=== PATIENT | female | born 1945 | race Caucasian/White ===

== ENCOUNTER 2020-11-01 14:35 | Emergency (ER) | payer MEDICARE, OTHER, SELFPAY ==
[2020-11-01 14:47] VITALS: BP 161/85; PULSE 101; RESP 18; TEMP 36.5; O2SAT 98; BMI 23.4
--- NOTE | 2020-11-01 16:37 | ECG_ITS ---
Test Reason : MEDICAL Blood Pressure : / mmHG Vent. Rate : 098 BPM Atrial Rate : 098 BPM P-R Int : 184 ms QRS Dur : 118 ms QT Int : 348 ms P-R-T Axes : 044 -22 016 degrees QTc Int : 444 ms Normal sinus rhythm Right bundle branch block Abnormal ECG No previous ECGs available Referred By: Tamara Leos Electronically Signed By:KELSI ROBLES
--- NOTE | 2020-11-01 16:38 | ED_ITS ---
HPI - General Adult General Chief complaint: General Medical Stated complaint: multiple complaints Time Seen by Provider: 11/01/20 16:20 Source: patient Mode of arrival: ambulatory Limitations: no limitations History of Present Illness HPI narrative: Patient comes to the emergency room asking for medication reassurance. Patient states that she was recently diagnosed with H pylori, today in the pharmacy she picked up a prescription of amoxicillin and omeprazole and Zofran for nausea. Patient states that she is very anxious and does not know if it is okay for her to take this medication. Patient states that she has had burning sensation in the epigastric area for several weeks, she has a GI appointment coming up in November. Patient states the discomfort is not too bad at this moment, 1st that she does not want any labs for today, she just wants reassurance about her new medications. Patient denies chest pain, no shortness of breath, no vomiting or diarrhea Related Data Allergies Allergy/AdvReac Type Severity Reaction Status Date / Time prednisone AdvReac Insomnia Verified 11/01/20 14:46 Review of Systems Review of Systems: Constitutional : No Weight loss, No Fever, No Chills, No Night Sweats, No Fatigue, No Malaise ENT/Mouth : No Hearing loss, No Ear Pain, No Nasal Congestion, No Sinus Pain, No Hoarseness, No sore throat, No Rhinorrhea, No Swallowing Difficulty Eyes: No Eye Pain, No Swelling, No Redness, No Foreign Body, No Discharge, No V ision Changes Cardiovascular : No Chest Pain, No SOB, No Dyspnea on Exertion, No Orthopnea, No Edema, No Palpitations Respiratory : No Cough, No Sputum, No Wheezing, No Smoke Exposure, No Dyspnea Gastrointestinal : Complaining of occasional nausea, no vomiting or diarrhea, burning sensation in her esophagus, mild epigastric burning sensation, no other abdominal pain, No Hematochezia, No Melena Genitourinary : no irregular bleeding, No Dysuria, No Urinary Frequency, No Hematuria, No Urinary Incontinence, No Urgency, No Flank Pain, No Urinary Flow Changes, No Hesitancy Musculoskeletal : No joint pain, No Myalgias, No Joint Swelling Skin : No Skin Lesions, No rash Neuro : No Weakness, No Numbness, No Paresthesias, No Loss of Consciousness, No Dizziness, No Headache Psych : No Anxiety/Panic, No Depression, No SI/HI/AH/VH, No Social Issues, Heme/Lymph: No Bruising, No Bleeding,No Lymphadenopathy Endocrine : No Polyuria, No Polydipsia, No Temperature Intolerance [facility] Past Medical History Medical History Dystonia Gastric reflux H. pylori infection HTN (hypertension) Overactive bladder Sinusitis Surgical History Hx of breast surgery Social History Social History Advance Directives: No Advance Directives Information Provided: No Physical Exam Vital Signs: Vital Signs: Last Vital Signs Temp 98.3 F 11/01/20 17:08 Pulse 96 11/01/20 17:08 Resp 17 11/01/20 17:08 BP 157/78 H 11/01/20 17:08 Pulse Ox 99 11/01/20 17:08 Body Mass Index 23.4 Appearance: Alert. Oriented X3. No acute distress. Very anxious Eyes: Pupils equal, round and reactive to light. ENT: Pharynx normal. Neck: Normal inspection. Neck supple. No lymph nodes noted. No crepitus CVS: Normal heart rate and rhythm. Pulses normal. Normal S1 and S2 Respiratory: No respiratory distress. Breath sounds normal. No Wheezing. No rales Abdomen: Soft and nontender even in the epigastric area. No rigidity. No distention. good BS x4 Skin: Skin warm and dry. Normal skin color. Normal skin turgor. Extremities: No lower extremity edema. No lower extremity edema. No Lacerations. No Rash Neuro: Oriented X 3. No motor deficit. No sensory deficit. Moving all extermities. No slurred speech. Course Course Course Narrative: Patient refused any labs, agree to take a GI cocktail and agree to an EKG. 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 Patient was reassured, agrees to take her medications as prescribed. Medical Decision Making ECG Data Attestation: I personally reviewed and interpreted this ECG as follows: (Sinus rhythm, heart rate 98, incomplete right bundle-branch block, QTC 444, nonspecific T-wave inversions in lead III) Discharge Plan Discharge Clinical Impression: Chronic GERD, Anxiety Patient Disposition: Home, Self-Care Instructions: Helicobacter Pylori (ED) Additional Instructions: Please follow-up with your primary care physician tomorrow. If you have any w orsening or new symptoms, please return to the emergency room or call [phone]
[2020-11-01] MEDS: Lidocaine HCl Viscous 2 % 15 ML SOLUTION MUCOUS MEM (17:02)
[2020-11-01] MEDS: Magnesium Hydrox/Alum Hydrox 30 ML ORAL.SUSP PO (17:02)
[2020-11-01 17:08] VITALS: BP 157/78; PULSE 96; RESP 17; TEMP 36.8; O2SAT 99
== END 2020-11-01 17:41 | disposition home or self-care (01) ==
PROVIDERS: Emergency Provider Emergency Medicine; PCP Internal Medicine
DX: F41.9 Anxiety disorder, unspecified (principal); K21.9 Gastro-esophageal reflux disease without esophagitis; A04.8 Other specified bacterial intestinal infections; I10 Essential (primary) hypertension
CPT/HCPCS: 93005; 99283

== ENCOUNTER 2022-01-07 18:33 | Emergency (ER) | payer MEDICARE, OTHER, SELFPAY ==
[2022-01-07 18:40] VITALS: BP 139/85; PULSE 91; RESP 17; TEMP 36.7; O2SAT 96; BMI 21.1
--- NOTE | 2022-01-07 20:24 | ED.SKABFB ---
HPI - Skin/Abscess/Foreign Bdy General Chief complaint: Skin/Abscess/Foreign Body Stated complaint: tick bite Time Seen by Provider: 01/07/22 19:33 Source: patient Mode of arrival: ambulatory Limitations: no limitations History of Present Illness HPI narrative: 76-year-old female whose pulled a deer tick of her left lower abdomen today, she felt the tick 1 week ago but thought it was a mole on her skin No fevers, no rash, no myalgias, no joint pain, no redness or swelling in her joints. Related Data Previous Rx's Medication Instructions Recorded doxycycline hyclate 100 mg tablet 100 mg PO BID 14 Days #28 tab 01/07/22 Allergies Allergy/AdvReac Type Severity Reaction Status Date / Time prednisone AdvReac Insomnia Verified 01/07/22 18:39 Review of Systems Constitutional: Constitutional: Denies body ache(s), Denies chills, Denies fatigue, Denies fever(s), Denies headache(s), Denies malaise and Denies weakness Eyes: Eyes: Denies diplopia ENT: Denies vertigo, Denies dizziness, Denies otalgia, Denies headache(s), Denies mouth pain, Denies post nasal drip, Denies sinus pain, Denies sinus pressure, Denies sore throat and Denies throat swelling Cardiovascular: Cardiovascular: Denies chest pain, Denies syncope, Denies leg edema, Denies lightheadedness, Denies Loss of Consciousness, Denies palpitations and Denies dyspnea Respiratory: Respiratory: Denies chest congestion, Denies cough and Denies dyspnea Gastrointestinal: Gastrointestinal: Denies abdominal pain, Denies hematochezia, Denies constipation, Denies diarrhea and Denies vomiting Musculoskeletal: Musculoskeletal: Reports no additional musculoskeletal complaints Integumentary/Breasts: Comments: Tick bite to left lower abdomen Neurologic: Denies confusion, Denies vertigo, Denies dizziness, Denies syncope, Denies headache(s) and Denies weakness Psychiatric: Psychiatric: Denies anxiety, Denies confusion and Denies depression Endocrine: Endocrine: Denies fatigue and Denies palpitations Allergic/Immunologic: Allergic/Immunologic: Denies throat swelling PMFSH Past Medical History Medical History Dystonia Gastric reflux H. pylori infection HTN (hypertension) Overactive bladder Sinusitis Surgical History Hx of breast surgery Social History Social History Advance Directives: No Advance Directives Information Provided: No Physical Exam Vital Signs: Vital Signs: Last Vital Signs Temp 98.1 F 01/07/22 18:40 Pulse 91 01/07/22 18:40 Resp 17 01/07/22 18:40 BP 139/85 01/07/22 18:40 Pulse Ox 96 01/07/22 18:40 BMI result Body Mass Index 21.1 Const: General: No confusion Nutritional Appearance: well nourished Orientation/consciousness: No confusion Limitations: no limitations Eyes: Conjunctivae: conjunctivae normal Pupils: Equal, round and reactive pupils present EOM: EOMs intact bilaterally Neck: Neck: Yes full ROM, Yes no lymphadenopathy and Yes supple Resp: Effort & Inspection: normal respiratory effort and able to speak in complete sentences Auscultation: clear to auscultation bilaterally, no crackles, no rales, no rhonchi and no wheezes Cardio: Rate: regular rate Rhythm: regular rhythm Heart sounds: S1 normal heart sound present and S2 normal heart sound present Skin: Other: 2 cm mildly erythematous and inflamed area with tiny necrotic center on patient's lower left abdomen Neuro: General: No confusion Cranial nerves: Yes Equal, round and reactive pupils present Extrem: General: Yes normal to inspection and Yes full ROM Psych: Appearance: grossly normal Affect: normal affect Attitude: cooperative Thought process: Normal thought process present Course Course Course Narrative: 76-year-old female presents with tick bite on left lower abdomen that may have been in place for 1 week. On exam, patient has 2 cm mildly swollen erythematous circular region with necrotic center, she brought in tick which is a deer tick Will treat with doxycycline Gave return precautions of fever, rash, joint pain, myalgias, joint redness or swelling. Counseled patient to follow-up with her primary care provider Discharge Plan Discharge Clinical Impression: Tick bite of abdominal wall Patient Disposition: Home, Self-Care Instructions: Lyme Disease (ED), Tick Bite (ED) Additional Instructions: Please take antibiotics as prescribed. Please call your primary care provider for follow-up appointment from today's emergency room Visit. Please cover up and stay out of the sun, the antibiotic you are on can make you very sensitive To sunburn. If you have fevers, rash, pain in your joints, redness or swelling in your joints, please return to be seen. Prescriptions: New doxycycline hyclate 100 mg tablet 100 mg PO BID 14 Days Qty: 28 0RF Interventions: ED Discharge Assessment Last Done: 01/07/22 19:53 Discharge Date/Time: 01/07/22 19:54
== END 2022-01-07 19:54 | disposition home or self-care (01) ==
PROVIDERS: Emergency Provider Emergency Medicine Emergency Medical Services; PCP Internal Medicine
DX: S30.861A Insect bite (nonvenomous) of abdominal wall, initial encounter (principal); R10.9 Unspecified abdominal pain; W57.XXXA Bitten or stung by nonvenomous insect and other nonvenomous arthropods, initial encounter; Y93.9 Activity, unspecified; Y92.9 Unspecified place or not applicable; Y99.9 Unspecified external cause status
CPT/HCPCS: 99283

== ENCOUNTER 2025-05-02 08:11 | Outpatient (REF) | payer MEDICARE, OTHER, SELFPAY ==
--- OUTSIDE RECORDS SUMMARY | 2025-04-29 09:30 | XMS_ITS | Encounter Summary ---
Author Organization [facility] Address [address] [place] [address] Care Team Providers Care Monitoring Specialist Name Role Phone Acacia Arora MD Primary Care Provider [phone] Reason for Visit * Reason Comments Vaginitis/Bacterial Vaginosis Encounter Details Date Type Department Care Team (Late st Contact Info) Description 04/29/2025 9:30 AM EDT Office Visit Obstetrics and Gynecology - [address] [phone] Sera Neves, [facility] [address] [place] [address] Lichen planus (Primary Dx); Vaginal atrophy Social History Tobacco Use Types Packs/Day Years Used Date Smoking Tobacco: Former Cigarettes Q uit: 09/04/1966 Smokeless Tobacco: Never Alcohol Use Standard Drinks/Week Comments Yes 0 (1 standard drink = 0.6 oz pur e alcohol) Housing Instability Answer Date Recorde d Are you worried that in the next 2 months you may not have stable housing? No 04/23/2025 Food Access & Nutrition Answer Date Rec orded Do you have access to a vari ety of food including fruits and vegetables? Yes 04/23/2025 Access to Healthcare Answer Date Record ed Within the last 3 months, renate mancilla many times did you visit the emergency department for your medical care? 0 04/23/2025 Health Literacy Answer Date Recorded How often do you need to hav e someone help you when you read instructions, pamphlets, or other written material from your doctor or pharmacy? Never 04/23/2025 Caregiver: How often do you need to have someone help you when you read instructions, pamphlets, or other written material from your doctor or pharmacy? Not on file 04/23/2025 Financial Risk Answer Date Recorded How hard is it for you to pa y for the very basics like food, housing, medical care, and air conditioning / heating? Not very hard 04/23/2025 Transportation Answer Date Recorded Has the lack of transportati on kept you from meetings, work, or from getting things needed for daily living? No Has the lack of transportati on kept you from medical appointments or from getting medications? No 04/23/2025 Social Isolation Answer Date Recorded How often do you feel lonely or isolated from th ose around you? Never 04/23/2025 Food Risk Answer Date Recorded Within the past 12 months we worried whether our food would run out before we got money to buy more. Never true 04/23/2025 Within the past 12 months th e food we bought just didn't last and we didn't have money to get more. Never true 04/23/2025 Dependent Care Answer Date Recorded Do you need help finding or paying for care for your loved ones. For example, child abuse worker or elderly care for an older adult? No 04/23/2025 Education Answer Date Recorded Do you think completing more education or training, like finishing a GED, going to college, or learning a trade, would be helpful for you? N/A 04/23/2025 Employment and Income Answer Date Recor ded During the last four weeks, have you been actively looking for work? No 04/23/2025 Living Situation Answer Date Recorded What is your living situation? 0 04/23/2025 Comments No Sex and Gender Information Value Date Recorded Sex Assigned at Not on file Legal Sex Female 9:30 PM EST Gender Identity Not on file Sexual Orientation Not on file documented as of this encounter Last Filed Vital Signs Vital Sign Reading Time Taken Comments Blood Pressure 115/61 04/29/2025 9:35 AM EDT Pulse 69 04/29/2025 9:35 AM EDT Temperature - - Respiratory Rate 14 04/29/2025 9:35 AM EDT Oxygen Saturation - - Inhaled Oxygen Concentration - - Weight 57.8 kg (127 lb 6.4 oz) 04/29/2025 9:35 A M EDT Height - - Body Mass Index 24.68 04/23/2025 10:36 AM EDT documented in this encounter Progress Notes * Sera Neves CNM - 04/29/2025 9:30 AM EDT CHIEF COMPLAINT: Vaginitis/Bacterial Vaginosis IDENTIFIER:Bev Ramirez is a 79 y.o. female. HPI: Bev presents to office for lichen planus and vaginal atrophy follow up. She is using the estrace cream 3 x a week and mycolog- nystatin triamcinolone 4x a week. Feels good no chronic itching. She is not sexually active. Denies PMB. Uses coconut oil 2 x a day for barrier. No urinary symptoms sees a urologist. ROS: As stated in HPI PAST MEDICAL HISTORY: OB History Para Term AB Living 3 3 3 3 SAB IAB Ectopic Multiple Live Births 3 # Outcome Date GA Lbr Tito/2nd Weight Sex Type Anes PTL Lv 3 Term ADELINE 2 Term ADELINE 1 Term ADELINE Patient Active Problem List Diagnosis Essential hypertension Hypothyroidism Intestinal metaplasia of gastric mucosa Lichen planus Osteoporosis, postmenopausal Recurrent UTI SSBE (short-segment Arnett's esophagus) Tremor Cervical dystonia Bladder neoplasm of uncertain malignant potential Past Surgical History: Procedure Laterality Date BREAST BIOPSY : ? rt side BREAST LUMPECTOMY COLONOSCOPY 10/23/2007 wnl COLONOSCOPY 01/06/2021 Diverticulosis, otherwise normal, repeat in 10 years. ESOPHAGOGASTRODUODENOSCOPY 01/06/2021 SSBE, esophageal and gastric biopsies: Intestinal metaplasia in 1 biopsy, Arnett's esophagus present: No Helicobacter pylori infection. TUBAL LIGATION SOCIAL HISTORY: Social History Tobacco Use Smoking status: Former Current packs/day: 0.00 Types: Cigarettes Quit date: 09/04/1966 Years since quittin.6 Smokeless tobacco: Never Substance Use Topics Alcohol use: Yes FAMILY HISTORY: Family History Problem Relation Name Age of Onset Thyroid disease Mother 93, lung cancer Alcohol abuse Father Kidney cancer Sister HTN, stroke Breast cancer Neg Hx Colon cancer Neg Hx Stomach cancer Neg Hx MEDICATIONS: There are no discontinued medications. ACTIVE MEDICATIONS: Outpatient Medications Marked as Taking for the 04/29/25 encounter (Office Visit) with Sera Neves CNM Medication Sig Dispense Refill amLODIPine (NORVASC) 5 mg tablet Take 1.5 tablets (7.5 mg total) by mouth at bedtime. 135 tablet 1 calcium/D3/mag/fol/K1/K2/mins (OSTEOPRIME PLUS CALC-MAGNESIUM ORAL) Take by mouth. emollient comb no.2, bulk, ointment 5% gabapentin ointment, Sig: Apply 0.5 g daily to affected areaonce daily, Patient phone number: [phone] (home) 60 g 1 estradioL (ESTRACE) 0.01 % (0.1 mg/gram) vaginal cream APPLY 1/2 GRAM PER VAGINA TWICE WEEKLY 42.5 g 3 famotidine (PEPCID) 20 mg tablet Take 1 tablet (20 mg total) by mouth 1 (one) time each day. At bedtime 90 tablet 3 loratadine (CLARITIN) 10 mg tablet Take 1 tablet (10 mg total) by mouth 1 (one) time each day if needed. Myrbetriq 25 mg 24 hr tablet Take 1 tablet (25 mg total) by mouth 1 (one) time each day. nystatin-triamcinolone (MYCOLOG II) ointment APPLY A THIN LAYER TO AFFECTED AREA TUESDAY, TUESDAY,TUESDAY, TUESDAY 30 g 1 omeprazole (PriLOSEC) [address] capsule Take 1 capsule (20 mg total) by mouth 2 (two) times a day. Do not crush or chew. 180 capsule 0 onabotulinumtoxinA (Botox) 200 unit injection PHYSICAL EXAM: Visit Vitals BP 115/61 Pulse 69 Resp 14 Wt 57.8 kg (127 lb 6.4 oz) BMI 24.68 kg/m?? OB Status Postmenopausal Smoking Status Former BSA 1.55 m?? APPEARANCE: Alert and in no acute distress, Normal ABDOMEN: soft, non-tender, without organomegaly or palpable masses LYMPHATICS: no inguinal adenopathy PERMASTONE MECHANIC: Normal external genitalia and urethra, no erythema or hypopigmentation, no loss of architecture. Normal clitoris and labia minora. Vagina without abnormality or discharge- atrophy at the introitus RECTAL: without lesion, hemorrhoid, prolapse SKIN: Skin color, texture, turgor normal. No rashes or lesions. LABS: N/A IMPRESSION: 1. Lichen planus 2. Vaginal atrophy PLAN: Medication and lab orders: No orders of the defined types were placed in this encounter. Other orders: None Well controlled lichen planus, continue with treatment regimen. RTO in 1 year for follow up or sooner PRN Sera Neves CNM documented in this encounter Plan of Treatment Upcoming Encounters Date Type Department Care Team (Late st Contact Info) Description 05/29/2025 10:00 AM EDT Appointment Radiology Department - [address] [phone] 10/24/2025 11:15 AM EST Office Visit Adult Medicine [address] [phone] Geni Reich PA [address] [place], [place] 01/28/2026 10:10 AM EDT Office Visit Gastroenterology - [place] [address] [facility] [address] [place] [id number] Corry Parada PA [address] [place] [phone] documented as of this encounter Visit Diagnoses Diagnosis Lichen planus- Primary Vaginal atrophy Postmenopausal atrophic vaginitis Encounter for screening mammogram for breast cancer documented in this encounter Additional Health Concerns Assessment Noted Time PHQ-9 Depression Total Score: 0 04/23/20 10:41 AM EDT A fall risk assessment has been complete d for the patient 04/23/2025 10:40 AM EDT documented as of this encounter Care Teams Monitoring Specialist Relationship Specialty Start Date End Date Acacia Arora MD [address] [place] [address] PCP - General Internal Medicine 11/18/20 documented as of this encounter
--- NOTE | 2025-05-02 | EMG_ITS ---
Procedure Performed: Botulinum toxin injection Diagnosis: Cervical Dystonia Procedure: The procedure was explained to the patient/caregiver, and informed consent was obtained. Toxin used: Botox EMG guidance was used during the injection. LOT: [id number] EXP: [id number] EMG was used to guide for Botox injection for cervical dystonia. Left sternocleidomastoid and multiple right paracervical muscles were identified and treatment given. MTDD
--- OUTSIDE RECORDS SUMMARY | 2025-05-02 08:36 | XMS_ITS | Clinical Summary ---
Author Organization [facility] Address [address] [place] [phone] Phone Care Team Providers Care Administrative Specialist Name Role Phone Acacia Arora MD Primary Care Provider [phone] Allergies Active Allergy Reactions Criticality Noted Date Comments Denosumab Rash,Myalgia Low 10/14/2022 Nitrofurantoin Monohyd/M-Cryst Nausea And Vomiting 04/19/2016 Oxybutynin 05/14/2024 Narrow Angle eyes Prednisone Flushing,Insomnia Low 03/03/2021 Medications amLODIPine (NORVASC) 5 MG tablet Take 5 mg by mouth daily. 7.5mg 08/15/20 20 Active omeprazole (PRILOSEC) 20 MG capsuleIndicatio ns:Helicobacter pylori gastritis Take 20 mg by mouth 2 (two) times a day. Indications: inflammation of the stomach lining caused by H. pylori Active famotidine (PEPCID) 20 MG tablet 02/14/20 21 Active loratadine (CLARITIN) 10 mg tablet Take 10 mg by mouth as needed. Active mirabegron (MYRBETRIQ) 25 mg Tb24 Take 1 tablet by mouth every morning. Brand name 05/11/20 24 Active estradioL (ESTRACE) 0.01 % (0.1 mg/gram) vaginal cream Place 0.5 g vaginally 3 (three) times a day. 03/15/20 24 Active cholecalciferol (VITAMIN D3) 2,000 unit tablet Take 1 tablet by mouth every morning. 05/07/20 24 Active Medication-Free Text Osteonaturals Osteo Stim 1000 iu vitamin D3, 750 mcg vitamin K, 3000 mcg biotin Active Medication-Free Text Osteonaturals Osteo Sustain 1000 iu vitamin D3, 1000 mcg vitamin K, 500 mg calcium (as di-calcium malate, calcium citrate malate, calcium biglycinate chelate, and calcium ascorbate, 300 mg magnesium Active nystatin-triamci nolone ointment Apply 1 Application topically. Four times weekly Active vit C/E/Zn/coppr/lut ein/zeaxan (PRESERVISION AREDS-2 ORAL) Take 2 capsules by mouth 2 (two) times a day. Active gabapentin 6 % topical ointment Apply 1 Application topically as needed. Active CALCIUM CITRATE ORAL Take 500 mg by mouth 2 (two) times a day. Active romosozumab-aqqg (EVENITY) 105 mg/1.17 mL subcutaneous syringeIndicatio ns:Age-related osteoporosis without current pathological fracture Inject 2.34 mL (210 mg total) under the skin every 30 (thirty) days. 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 Assessment & Plan (08/28/2024 10:11 AM EST): This could be associated with mast cell activation syndrome or mastocytosis. She does not have any skin lesion associated with mastocytosis. I think it would be beneficial for her to be seen by allergy and immunology for further workup. She believes that there is an instructor psychiatric aide at [facility]. 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 I am not doing any further workup. 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 So this needs to be addressed. Homocystenemia levels also induces apoptosis via ROS-mediated oxidative pathways which further switches off osteoclast activity and mineralization, by up regulating RANKL expression, leading to osteoporosis by reducing bone formation. Conditions associated with high homocysteine levels include osteoporosis, atherosclerosis, thrombosis, heart attack, CAD, stroke, dementia hypothyroidism, chronic kidney disease. I will check vitamin B6 and B12. Homocysteine elevation can be seen with MTHFR methylenetetraydrofolate reductase genetic mutation, this enzyme is important for converting folate to it's active form is necessary for DNA synthesis repair and methylation. I will also check folate level. However other studies evaluating for MTHFR could be done by her primary care physician. Bladder neoplasm of uncertain malignant potentia l 06/15/2024 Age-related osteoporosis wit hout current pathological fracture 05/14/2024 Assessment & Plan (12/10/2024 10:52 AM EDT): She is taking calcium and vitamin D supplements. I did find other etiologies for potential osteoporosis such as elevated tryptase and homocystine levels. However the etiologies of this conditions are unclear. And never received instructor psychiatric aide notes. As for homocystinemia I checked various lab work and they were all in the reference range. She was approved for EvenContentRealtime and presents today for her first injection. She is due for repeat DXA scan on 12/10/2025 and she should get it done at [facility]. I told her that she should speak to her primary care physician to request this study. This should be done on a timely manner depending on the delays at [facility]. I will request CTX, procollagen and renal panel for the follow-up visit with me in 1 year. The patient will follow monthly with the nurse for Evenity injection. This medication is good for 1 year. Assessment & Plan (08/28/2024 10:26 AM EST): The patient takes calcium and vitamin D supplements and is doing weightbearing exercises and this is all adequate. In the workup for secondary causes of osteoporosis we found that she had a extremely high CTX level indicating that she has bone resorption. She was also found to have elevated tryptase which can be associated with mast cell activation syndrome or mastocytosis and is associated with worsening osteoporosis. So she is going to need to see an instructor psychiatric aide for further evaluation. She was also found to have elevated homocystine level which also associated with osteoporosis. Homocystenemia induces apoptosis via ROS-mediated oxidative pathways which further switches off osteoclast activity and mineralization, by up regulating RANKL expression, leading to osteoporosis by reducing bone formation. So she will require further workup for this as well. I will do preliminary workup but this is going to have to be managed by her PCP. She is going to require further workup for these conditions but in the meantime I can prescribe antiresorptive medications. The antiresorptive medications are the bisphosphonates and rank ligand antagonists. The bisphosphonates come in oral form and IV form. The oral form is alendronate, this is a 70 mg tablet that is taken once a week with water on an empty stomach. The patient must not eat for 30 minutes and remain upright in a sitting or standing position. This medication may be associated with reflux. This medication can be used up to 5 years and at that point we reevaluate. If the bone density has not improved we can switch to another medication or continue the same medications for another 5 years. If there is improvement in bone mineral density then we can do a drug holiday. The IV form is called zoledronic acid/ Reclast. This is administered in the hospital as a yearly infusion. This medication can be used up to 3 years. Again this medication also can be repeated for another 3 years if there is insufficient bone mineral density or the medication could be switch for something else. If good bone improvement then we can consider a drug holiday. It is associated with flulike symptoms such as muscle aches, headaches, etc. The other antiresorptive medication is rank ligand antagonist such as Prolia/ denosumab. This medication is administered subcutaneously in the office every 6 months. With this medication you have to have adequate calcium intake otherwise hypocalcemia may develop. Furthermore the medication must not be missed there is a 2-week window in which the patient must have the injection. If the patient misses the injection then there will be rapid decrease in bone mineral density. Furthermore if the patient wants to stop the medication that we will have to take alendronate for period of 1 year. If the patient does not take any medications at all after stopping Prolia then they will return to their original bone mineral density within 12 months. All of these medications are associated with atypical femur fracture and jaw necrosis after prolonged use. Prolonged use is considered to be approximately 5 years. The risk of atypical femur fracture approximately 0.8% and for jaw necrosis is approximately 0.1%. This can translate to up to 5 people out of 10,000. There are other medications such as anabolic hormones. These include Forteo and Tymlos which are basically the same medication but different brands. These medications are injected by the patient on a daily basis at nighttime right before going to bed. This medication is good for period of 2 years. It is administered in the evening because it could be associated with dizziness. The last medication is Evenity which is administered in the office on a monthly basis for period of 1 year. This medication cannot be used if the patient had a myocardial infarction within the last 6 months. The anabolic hormones are very expensive and normally for a patient who has not use any of these medications they usually get one of the antiresorptive medications such as alendronate, zoledronic acid or Prolia. She cannot tolerate Prolia as she tried this before. I suggested to her that she has such advanced osteoporosis that she would do best to use anabolic hormones such as Evenity or Forteo/Tymlos administration. She rather try Evenity. I told her that after using this then she can follow it up with antiresorptive medications such as alendronate or zoledronic acid. This method using anabolic hormones followed by antiresorptive medications and studies have been shown to be most beneficial for increasing bone mineral density. She would like to try Evenity. I will prescribe that she may require prior authorization. Assessment & Plan (05/14/2024 3:20 PM EDT): This is a patient with history of osteoporosis possibly as early as 2005 maybe earlier. Her risk factors for osteoporosis include family history, age, menopause, remote use of tobacco, use of proton pump inhibitors for 3 years, possibly use of tricyclic or SSRI antidepressants for period of 1 year. He has not had any fractures. She has had 2 inch decrease in height. She currently takes calcium and vitamin D supplements and she does weightbearing exercises. For the most part she has refused antiresorptive medications because of fear of developing reactions. The 1 time she tried Prolia she developed a reaction. She did use of a steroid for approximately 3 years. 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 She has not tried anabolic hormones. At this point will get the remaining workup for secondary causes of osteoporosis that have not been previously been done. Today I did speak to her about using anabolic hormones such as Forteo which is a daily injection and will probably help her the best because she has severely advanced osteoporosis. It is unclear if the insurance will cover this. Another possibility is zoledronic acid. She is concerned about adverse effects and is true that this medication can potentially cause flulike symptoms. As for jaw necrosis the risk is so low 0.1% that the risk for jaw necrosis is higher from a dental procedure at least 7%. Still most people are afraid of potential complications that are very low risk. So I would urge her not to consider this as a factor. However it is quite possible that she may develop a reaction to zoledronic acid we do not know until the patient actually tries it. The patient has not had history radiation therapy so she does not have any contraindications to the use of anabolic hormones such as Forteo. Cervical dystonia 10/24/2020 Resolved Problems Problem Noted Date Diagnosed Date Resolved Date Paraspinal muscle spasm 10/24/202001/03 Encounters Date Type Department Care Team Description 04/16/2025 10:15 AM EDT Nurse Only [facility] [address] [place] [address] [place] [address] Keenan Manrique DO Age-related osteoporosis without current pathological fracture (Primary Dx) 03/14/2025 10:30 AM EDT Nurse Only [facility] [address] [place] [address] [place] [address] Keenan Manrique DO Age-related osteoporosis without current pathological fracture (Primary Dx) 02/12/2025 10:30 AM EDT Nurse Only [facility] [address] [place] [address] [place] [address] Keenan Manrique DO Age-related osteoporosis without current pathological fracture (Primary Dx) from Last 3 Months Immunizations Immunization Administration Dates Next Due COVID-19 (Pre-06/27) Pfizer Vaccine, mRNA, PF 11/26/2020 Flu H1n1 Tiv Preservative Free 09/12/2009 INFLUENZA, SPLIT VIRUS, TRIV ALENT W/ PRESERVATIVE IM 06/08/2015,06/14/2014,06/05/2013,05/21,05/27/2011,06/13/2010,06/12/2009 ,06/20/2008,06/15/2007,08/20/2006,06/06 Influenza High-Dose Trivalen t Preservative Free IM 05/29/2019,05/21/2018,06/06/2016 Influenza Quadrivalent Adjuv anted Preservative Free IM 06/11/2020 Pneumococcal conjugate PCV13 04/06/2016 Pneumococcal polysaccharide PPSV23 07/03/2012 Td, unspecified formulation 07/03/2002 Tdap 07/03/2012 Zoster live 06/29/2011 Family History Medical History Relation Comments No Known Problems Father Osteoporosis Mother Osteoporosis Sister Relation Status Comments Father Mother Sister Alive Social History Tobacco Use Types Packs/Day Years Used Date Smoking Tobacco: Former Cigarettes Q uit: 1966 Smokeless Tobacco: Never Tobacco Cessation:Counseling Given: Not Answered Alcohol Use Standard Drinks/Week Comments Never 0 (1 standard drink = 0.6 oz pur e alcohol) Education Answer Date Recorded Are you interested in more education? Not on heath e 12/31/2022 Are you concerned about learning? Not on file 12/31/2022 No 12/31/2022 No 12/31/2022 Digital Access Answer Date Recorded No 01/29/2023 No 01/29/2023 Reliable internet access at home? Not on file 01/29/2023 Device with a working camera? Not on file Intimate Partner Violence Answer Date R ecorded Are you denied basic needs s uch as food, clothing, or medical care? No 06/15/2024 In the past 12 months have y ou been in a relationship with a person who hurts, threatens, or tries to control you? No 06/15/2024 Are you denied basic needs s [facility] as food, clothing, or medical care? No 06/15/2024 In the past 12 months have y ou been in a relationship with a person who hurts, threatens, or tries to control you? No 06/15/2024 Comments No Sex and Gender Information Value Date Recorded Sex Assigned at Not on file Legal Sex Female 4:12 PM EDT Gender Identity Not on file Sexual Orientation Not on file Last Filed Vital Signs Vital Sign Reading Time Taken Comments Blood Pressure 140/72 02/12/2025 10:39 AM EDT Pulse 83 12/10/2024 10:40 AM EDT Temperature 37 C (98.6 F) 06/15/2024 10:54 AM EDT Respiratory Rate 14 06/15/2024 10:54 AM EDT Oxygen Saturation 97% 12/10/2024 10:40 AM EDT Inhaled Oxygen Concentration - - Weight 56.5 kg (124 lb 9.6 oz) 12/10/2024 10:40 AM EDT Height 152.4 cm (5') 12/10/2024 10:40 AM EDT Body Mass Index 24.33 12/10/2024 10:40 AM EDT Plan of Treatment Upcoming Encounters Date Type Department Care Team (Late st Contact Info) Description 05/21/2025 10:00 AM EDT Nurse Only [facility] [address] [place] [address] Keenan Manrique [address] [address] 12/10/2025 10:10 AM EDT Office Visit [facility] [address] [place] [address] Keenan Manrique [address] [address] [email or web address] Health Maintenance Due Date Last Done Comments DEPRESSION SCREENING 1958 HEPATITIS C SCREENING 1964 OSTEOPOROSIS SCREENING INITIAL (ONE-TIME) 2011 COVID-19 VACCINE ( season) 2024 09/01/2023, 06/17/2022, 06/29/2021, Additional history exists SMOKING Hx and SMOKELESS TOBACCO SCREENING 12/10/2025 12/10/2024 LIPID PANEL 08/27/2029 08/27/2024 Adult Td,Tdap Booster 07/13/2032 07/13/2022 , 07/03/2012, 07/03/2002 PNEUMOCOCCAL VACCINES (50+ years) Completed 04/06/2016, 07/03/2012 ZOSTER VACCINES Completed 02/20/2022, 10/06, 06/29/2011 RSV VACCINE Completed 05/19/2023 HEPATITIS A VACCINES Aged Out No long er eligible based on patient's age to complete this topic HIB VACCINES Aged Out No longer eligi ble based on patient's age to complete this topic MENINGOCOCCAL VACCINES (ACWY) Aged Out No longer eligible based on patient's age to complete this topic MENINGOCOCCAL VACCINES (B) Aged Out N o longer eligible based on patient's age to complete this topic Medical Devices Not on file Insurance MEDICARE PART A & B [facility] MEDICARE SUPPLEMENT MEDICARE PART A & B Member Subscriber Plan / Payer (Ef fective 2011-Present) Name:Bev Ramirez Member ID:[id number] Relation to Subscriber:Self Name:Bev Ramirez Subscriber ID:[id number] Payer ID:[id number] Group ID:Not on file Type:Medicare Address: [employer] [address] [place] [id number] [facility] MEDICARE SUPPLEMENT MEDICARE PART A & B MEDICARE SUPPLEMENT MEDICARE PART A & B [employer] MEDICARE SUPPLEMENT MEDICARE PART A & B [employer] MEDICARE SUPPLEMENT MEDICARE PART A & B [employer] MEDICARE SUPPLEMENT MEDICARE PART A & B [employer] MEDICARE SUPPLEMENT MEDICARE PART A & B [facility] MEDICARE SUPPLEMENT MEDICARE PART A & B [employer] [facility] MEDICARE SUPPLEMENT Care Teams Administrative Specialist Relationship Specialty Start Date End Date Acacia Arora MD [address] [place] [id number] PCP - General Internal Medicine 01/20/21 Additional Source Comments The information contained in this document represents components of the legal health record. It is not the complete legal health record.[facility]
--- OUTSIDE RECORDS SUMMARY | 2025-05-02 08:36 | XMS_ITS | Clinical Summary ---
Author Organization [address] Address [address] [place] [phone] Phone Care Team Providers Care Rag Shredder Name Role Phone Acacia Arora MD Primary Care Provider [phone] Allergies Active Allergy Reactions Criticality Noted Date Comments Denosumab 10/14/2022 rash Nitrofurantoin Monohyd/M-Cryst Nausea And Vomiting 04/19/2016 Prednisone 10/02/2020 Flushing insomnia Medications NON FORMULARY Apply 0.5 g topically 1 (one) time each day. 5% gabapentin ointment Sig: Apply 0.5 g daily to affected area Patient phone number: [phone] (home) 06/15/20 23 Active FA/mv,Ca,iron, min/lycopene/l ut (MULTIVITAL ORAL) Take 1 tablet by mouth 2 (two) times a day. Active loratadine (CLARITIN) 10 mg tablet Take 1 tablet (10 mg total) by mouth 1 (one) time each day if needed. Active onabotulinumto xinA (Botox) 200 unit injection 06/28/20 23 Active vit A/vit C/vit E/zinc/copper (ICAPS AREDS ORAL) Take by mouth. Active calcium/D3/mag /fol/K1/K2/min s (OSTEOPRIME PLUS CALC-MAGNESIUM ORAL) Take by mouth. Active emollient comb no.2, bulk, ointmentIndica tions:Vulvar burning 5% gabapentin ointment, Sig: Apply 0.5 g daily to affected area once daily, Patient phone number: [phone] (home) 60 g 1 09/07/19 25 Active Myrbetriq 25 mg 24 hr tablet Take 1 tablet (25 mg total) by mouth 1 (one) time each day. 09/19/19 25 Active romosozumab-aq qg Inject 2.34 mL (210 mg total) under the skin 1 (one) time. Monthly for 1 year 12/11/19 25 Active famotidine (PEPCID) 20 mg tablet Take 1 tablet (20 mg total) by mouth 1 (one) time each day. At bedtime 90 tablet 3 01/24/20 25 Active cholecalcifero l (VITAMIN D-3) 50 mcg (2,000 unit) tablet Take 1 tablet (2,000 Units total) by mouth 1 (one) time each day. 90 tablet 3 02/27/20 25 Active omeprazole (PriLOSEC) [address] capsule Take 1 capsule (20 mg total) by mouth 2 (two) times a day. Do not crush or chew. 180 capsule 03/05/20 25 Active nystatin-triam cinolone (MYCOLOG II) ointmentIndica tions:Lichen planus, unspecified APPLY A THIN LAYER TO AFFECTED AREA TUESDAY, TUESDAY, TUESDAY, TUESDAY 30 g 1 03/20/20 25 Active estradioL (ESTRACE) 0.01 % (0.1 mg/gram) vaginal creamIndicatio ns:Atrophy of vulva APPLY 1/2 GRAM PER VAGINA TWICE WEEKLY 42.5 g 3 03/21/20 25 Active amLODIPine (NORVASC) 5 mg tablet Take 1.5 tablets (7.5 mg total) by mouth at bedtime. 135 tablet 1 04/23/20 25 Active oxyBUTYnin XL (DITROPAN-XL) 5 mg 24 hr tablet Take 1 tablet (5 mg total) by mouth 1 (one) time each day. 06/29/20 23 025 Discontinued amLODIPine (NORVASC) 5 mg tablet Take 1.5 tablets (7.5 mg total) by mouth at bedtime. 135 tablet 03/07/20 25 025 Discontinued(Re order) Active Problems Problem Noted Date Diagnosed Date Bladder neoplasm of uncertain malignant potentia l 06/15/2024 Overview (04/23/2025): 06/28 lesion cauterized, not cancer Assessment & Plan (04/23/2025 11:06 AM EDT): Lichen planus 02/04/2022 Overview (04/04/2025): Assessment & Plan (09/07/2024 3:28 PM EST): Continue three times per week Mycolog. Intestinal metaplasia of gastric mucosa 01/14/20 21 Overview (07/19/2024): 01/13/2021: EGD showed 1 out of 5 biopsies positive for intestinal metaplasia, consider repeat endoscopy with biopsy mapping in 3 to 5 years. SSBE (short-segment Arnett's esophagus) 021 Overview (07/19/2024): 01/13/2021: EGD plus biopsies indicated a small area of short segment Arnett's esophagus, no dysplasia, consider repeat endoscopy in 3 to 5 years. Cervical dystonia 10/24/2020 Essential hypertension 06/07/2018 Overview (04/04/2025): Assessment & Plan (04/23/2025 11:06 AM EDT): Recurrent UTI 04/19/2016 Tremor 07/25/2013 Overview (07/19/2024): vijay marquez Dx Cervical dystonia Osteoporosis, postmenopausal 04/17/2008 Overview (07/19/2024): Stopped Evista because she felt it made her BP high. T -3.5 in spine, -3.0 femoral neck (DEXA 2007) 12/25 T score spine -4.5 hip -3.8 Assessment & Plan (04/23/2025 11:06 AM EDT): Hypothyroidism 01/30/2006 Assessment & Plan (04/23/2025 11:06 AM EDT): Resolved Problems Problem Noted Date Diagnosed Date Resolved Date Urinary frequency 09/07/2024 04/04/2025 Vulvar burning 12/01/2021 04/04/2025 Overview (07/19/2024): Last Assessment & Plan: Well controlled. Continue daily topical gabapentin Assessment & Plan (09/07/2024 3:28 PM EST): I explained to Elly that there is no concerning physical finding for any particular pathology. I recommended she continue her usual regimen and add coconut oil several times during the day. We will send yeast culture to ensure. Vulvar atrophy 09/17/2021 04/04/2025 Overview (07/19/2024): Last Assessment & Plan: Well controlled. Continue twice weekly Estrace. Assessment & Plan (09/07/2024 3:28 PM EST): Continue MWF Estrace. Frequency of micturition 08/05/2016 Overview (07/19/2024): Last Assessment & Plan: Repeat urine studies normal today. She was encouraged to return to Urology. Encounters Date Type Department Care Team Description 04/29/2025 9:30 AM EDT Office Visit Obstetrics and Gynecology [address] [phone] Sera Neves CNM Lichen planus (Primary Dx); Vaginal atrophy 04/23/2025 11:00 AM EDT Office Visit Adult Medicine [address] [phone] Acacia Arora MD Encounter for annual wellness visit (AWV) in Medicare patient (Primary Dx); Essential hypertension; Acquired hypothyroidism; Osteoporosis, postmenopausal; Bladder neoplasm of uncertain malignant potential from Last 3 Months Immunizations Name Administration Dates Next Due H1N1 Inj Preservative Free 09/12/2009 Influenza Quadravalent, MDCK , 0.5ml, with preservative (Flucelvax) 6mo and older 06/05/2017 Influenza trivalent, 0.5mL ( Fluad) 65yo and older 05/16/2024,05/10/2023,06/07/2022,06/09,06/11/2020,05/29/2019,05/21/2018 ,06/06/2016,06/29/2005 Influenza trivalent, 0.5mL, preservative free (Fluarix; FluLaval; Fluzone) ages 6mo and older (Afluria) 3 years and older 06/20/2008,06/15/2007 Influenza trivalent, with pr eservative (Fluzone; Afluria) 6mo and older 06/08/2015,06/14/2014,06/05/2013,05/21,05/27/2011,06/13/2010,06/12/2009 ,08/20/2006 Influenza, Unspecified 06/09/2021 Pfizer (ages 12 & older) Biv alent, COVID-19 06/17/2022 Pfizer SARS-CoV-2 COVID-19, mRNA, LNP-S, preservative free 06/29/2021 Pneumococcal conjugate 13 va lent (Prevnar 13, PCV13) 2mo and older 04/06/2016 Pneumococcal polysaccharide 23 valent (Pneumovax 23) 2yo and older 07/03/2012 RSV, bivalent, protein subun it RSVpreF, 0.5mL, Preservative Free (Arexvy) 60yo and older 05/19/2023 Td Tetanus diptheria (Tdvax) 7yo and older 07/13/2022,07/03/2002 Td, Unspecified 07/03/2002 Tdap Tetanus diptheria acell ular pertussis (Boostrix; Adacel) 7yo and older 07/03/2012 Zoster Live 06/29/2011 Zoster recombinant (Shingrix ) 19yo and older 02/20/2022,10/23/2021 Surgical History Surgery Date Site/Laterality Comments BREAST LUMPECTOMY BREAST BIOPSY : 2000's ? rt side COLONOSCOPY 10/23/2007 wnl COLONOSCOPY 01/06/2021 Diverticulosis, otherwise normal, repeat in 10 years. ESOPHAGOGASTRODUODENOSCOPY 01/06/2021 SSBE, esophageal and gastric biopsies: Intestinal metaplasia in 1 biopsy, Arnett's esophagus present: No Helicobacter pylori infection. TUBAL LIGATION Medical History Medical History Date Comments Special screening for malign ant neoplasms, colon 10/23/2007 Negative colonoscopy 10/23/19 08, no colon cancer screening needed for 10 years. Tremor 07/25/2013 : vijay marquez Dx Cervical dystonia Intestinal metaplasia of gastric mucosa 01/14/20 21 01/13/2021: EGD showed 1 out of 5 biopsies positive for intestinal metaplasia, consider repeat endoscopy with biopsy mapping in 3 to 5 years. History of Helicobacter pylo ri infection 02/13/2021 Cured in 2020. Esophageal reflux DX:Esophageal reflux Arnett's esophagus Essential hypertension 06/07/2018 Cervical dystonia 10/24/2020 Recurrent UTI 04/19/2016 Osteoporosis, postmenopausal 04/17/2008 Sto pped Evista because she felt it made her BP high. T -3.5 in spine, -3.0 femoral neck (DEXA 2007) 12/25 T score spine -4.5 hip -3.8 Hypothyroidism 01/30/2006 Family History Medical History Relation Name Comments Alcohol abuse Father Thyroid disease Mother 93, aurora g cancer Kidney cancer Sister HTN, stroke Breast cancer Neg Hx Colon cancer Neg Hx Stomach cancer Neg Hx Relation Name Status Comments Father (Age 65) Mother (Age 94) Sister Alive Social History Tobacco Use Types Packs/Day Years Used Date Smoking Tobacco: Former Cigarettes Q uit: 09/04/1966 Smokeless Tobacco: Never Tobacco Cessation:Counseling Given: Not Answered Alcohol Use Standard Drinks/Week Comments Yes 0 [...] care for your loved ones. For example, children's zoo caretaker or elderly care for an older adult? [...] on file Sexual Orientation Not on file Obstetrics History Para Term AB IAB SAB Ectopic Multiple Livin g Live Births 3 3 3 3 3 Date Outcome GA Total Labor Labor/2nd/3rd Weight Sex Type Anes PTL Sonia A1 A5 Name Clin Term Living Term Living Term Living Last Filed Vital Signs Vital Sign Reading Time Taken Comments Blood Pressure 115/61 04/29/2025 9:35 AM EDT Pulse 69 04/29/2025 9:35 AM EDT Temperature 36.2 C (97.2 F) 04/23/2025 10:36 AM EDT Respiratory Rate 14 04/29/2025 9:35 AM EDT Oxygen Saturation 97% 04/23/2025 10:36 AM EDT Inhaled Oxygen Concentration - - Weight 57.8 kg (127 lb 6.4 oz) 04/29/2025 9:35 A M EDT Height 153 cm (5' 0.25 ) 04/23/2025 10:36 AM EDT Body Mass Index 24.68 04/23/2025 10:36 AM EDT Plan of Treatment Upcoming Encounters Date Type Department Care Team (Late st Contact Info) Description 05/29/2025 10:00 AM EDT Appointment Radiology Department - [address] [phone] 10/24/2025 11:15 AM EST Office Visit Adult Medicine [address] [phone] Geni Reich PA [address] [place], [place] 01/28/2026 10:10 AM EDT Office Visit Gastroenterology - [place] [address] [facility] [address] [place] [address] Corry Parada PA [address] [place] [phone] Health Maintenance Due Date Last Done Comments COVID-19 Vaccine ( season) 2024 06/27/2024, 09/01/2023, 06/17/2022, Additional history exists Influenza Vaccine (#1) 2025 , 05/10/2023, 06/07/2022, Additional history exists Hypertension/CHF/CAD Annual BMP Blood Test 08/27/2025 08/27/2024, 05/21/2024, 01/03/2024, Additional history exists Falls Risk Assessment 04/23/2026 04/23/2025, 02/20/ 024 Medicare Annual Wellness Visit 04/23/2026 04/23/2025 Social Influencers of Health Screening 04/23/2026 04/23/2025 Cholesterol Screening (Lipid Panel) 08/27/2029 08/27/2024, 07/21/2023 DTaP,Tdap,and Td Vaccines (5 - Td or Tdap) 07/13/2032 07/13/2022, 07/03/2012, 07/03/2002, Additional history exists Osteoporosis Screening (Bone Density Screening) 12/20/2033 12/21/2023, 12/17/2021 Hepatitis C Screening Completed 07/26/2013 Pneumococcal Vaccine: 50+ Years Completed 04/06/2016, 07/03/2012 Zoster Vaccines Completed 02/20/2022, 10/06, 06/29/2011 RSV Immunization Adult Patients Completed 05/19/2023 Depression Screening Completed 04/23/2025, 02/21/20 24 HIB Vaccines Aged Out No longer eligi ble based on patient's age to complete this topic HPV Vaccines Aged Out No longer eligi ble based on patient's age to complete this topic Hepatitis A Vaccines Aged Out No long er eligible based on patient's age to complete this topic Hepatitis B Vaccines Aged Out No long er eligible based on patient's age to complete this topic IPV Vaccines Aged Out No longer eligi ble based on patient's age to complete this topic MMR Vaccines Aged Out No longer eligi ble based on patient's age to complete this topic Meningococcal ACWY Vaccine Aged Out N o longer eligible based on patient's age to complete this topic Meningococcal B Vaccine Aged Out No l onger eligible based on patient's age to complete this topic RSV Immunization Patients Under 20 months Aged Out No longer eligible based on patient's age to complete this topic Varicella Vaccines Aged Out No longer eligible based on patient's age to complete this topic Procedures Procedure Name Priority Date/Time Associated Diagnosis Comments COMPREHENSIVE METABOLIC PANEL Routine 08/27/2024 7:58 AM EST Hypothyroidism, unspecified type Osteoporosis, postmenopausal Essential hypertension Mixed hyperlipidemia LIPID PANEL WITH REFLEX TO DIRECT LDL Routine 08/27/2024 7:58 AM EST Mixed hyperlipidemia DEPRESSION SCREENING Routine 02/21/2024 FALLS RISK ASSESSMENT Routine 02/21/2024 DXA BONE DENSITY STUDY 1+ SITS AXIAL SKEL Routine 12/21/2023 10:09 AM EDT Age-related osteoporosis without current pathological fracture HEPATITIS C SCREENING Routine 07/26/2013 from Last 3 Months or Most Recently Relevant to Health Maintenance Results * (ABNORMAL) Lipid panel with reflex to direct LDL (08/27/2024 7:58 AM EST) Pathologist [facility] Cholesterol 234(H) 0 - 200 mg/dL LAB CHEMISTRY METHOD 08/27/2024 10:08 AM EST [facility] Triglycerides 168(H) 0 - 150 mg/dL LAB CHEMISTRY METHOD 08/27/2024 10:08 AM EST [facility] HDL 71 >=40 mg/dL LAB CHEMISTRY METHOD 08/27/2024 10:08 AM [facility] LDL Calculated 129(H) 0 - 100 mg/dL LAB CHEMISTRY METHOD 08/27/2024 10:08 AM EST [facility] VLDL Cholesterol [place] 33.6 mg/dL LAB CHEMISTRY METHOD 08/27/2024 10:08 AM EST [facility] Non HDL Chol. (LDL+VLDL) 163(H) <145 mg/dL LAB CHEMISTRY METHOD 08/27/2024 10:08 AM [facility] Chol/HDL Ratio 3.3 0.0 - 4.4 LAB CHEMISTRY METHOD 08/27/2024 10:08 AM EST [facility] Blood Venous blood specimen / Unknown Venipuncture / Unknown 08/27/2024 7:58 AM EST 08/27/2024 7:58 AM EST us Geni ESTEVEZ LAB BLOOD ORDERABLES Final Re sult [facility] [address] [place] [address], * (ABNORMAL) Comprehensive metabolic panel (08/27/2024 7:58 AM EST) Sodium 139 133 - 145 mmol/L LAB CHEMISTRY METHOD 08/27/2024 10:08 AM [facility] Potassium 4.2 3.5 - 5.5 mmol/L LAB CHEMISTRY METHOD 08/27/2024 10:08 AM [facility] Chloride 105 96 - 110 mmol/L LAB CHEMISTRY METHOD 08/27/2024 10:08 AM [facility] CO2 31 21 - 32 mmol/L LAB CHEMISTRY METHOD 08/27/2024 10:08 AM [facility] Anion Gap 3 3 - 11 LAB CHEMISTRY METHOD 08/27/2024 10:08 AM [facility] Glucose 101(H) 70 - 100 mg/dL LAB CHEMISTRY METHOD 08/27/2024 10:08 AM [facility] BUN 12 5 - 25 mg/dL LAB CHEMISTRY METHOD 08/27/2024 10:08 AM [facility] Creatinine 0.65 0.50 - 1.10 mg/dL LAB CHEMISTRY METHOD 08/27/2024 10:08 AM [facility] eGFR 90 >=60 mL/min/1. 73m2 LAB CHEMISTRY METHOD 08/27/2024 10:08 AM [facility] Comment:Calculation based on the Chronic Kidney Disease Epidemiology Collaboration (CKD-EPI) equation refit without adjustment for race. BUN/Creatinine Ratio 18.5 LAB CHEMISTRY METHOD 08/27/2024 10:08 AM [facility] Calcium 9.9 8.5 - 10.5 mg/dL LAB CHEMISTRY METHOD 08/27/2024 10:08 AM [facility] AST (SGOT) 11 10 - 42 unit/L LAB CHEMISTRY METHOD 08/27/2024 10:08 AM [facility] ALT (SGPT) 19 10 - 60 unit/L LAB CHEMISTRY METHOD 08/27/2024 10:08 AM [facility] Alkaline Phosphatase 136(H) 42 - 121 unit/L LAB CHEMISTRY METHOD 08/27/2024 10:08 AM EST [facility] Total Protein 7.2 6.0 - 8.0 g/dL LAB CHEMISTRY METHOD 08/27/2024 10:08 AM EST [facility] Albumin 4.1 3.2 - 5.0 g/dL LAB CHEMISTRY METHOD 08/27/2024 10:08 AM EST [facility] Total Bilirubin 0.5 0.0 - 1.4 mg/dL LAB CHEMISTRY METHOD 08/27/2024 10:08 AM EST [facility] Blood Venous blood specimen / Unknown Venipuncture / Unknown 08/27/2024 7:58 AM EST 08/27/2024 7:58 AM EST Geni ESTEVEZ LAB BLOOD ORDERABLES Final Re sult [facility] [address] [place] [address], [place] [phone] * Falls Risk Assessment (02/21/2024) Falls Risk Assessment Abstracted Historical Provider HEALTH MAINTENANCE Final Result * Depression Screening (02/21/2024) Depression Screening Abstracted Historical Provider HEALTH MAINTENANCE Final Result * DXA BONE DENSITY STUDY 1+ SITS AXIAL SKEL (12/21/2023 10:09 AM EDT) Anatomical Region Laterality Modality Bone Densitometr y 10/13/2023 11:5 5 AM EST Narrative 12/21/2023 8:18 PM EDT BONE DENSITY SCAN (DEXA): FINDINGS: Lumbar Spine T-score is -5.0. (SD relative to 20-29 y/o adult) Z-score is -2.5. (SD relative to age matched peers) This is considered osteoporosis by WHO criteria. Left Hip T-score is -4.0. Z-score is -1.9. This is considered osteoporosis by WHO criteria. Comparison exam(s): 12/17/2021. 11.3% loss of lumbar spine bone mineral density and 5.7% loss of left hip bone mineral density, both statistically significant at the 95% confidence level. Lateral survey view of the thoracolumbar spine shows minimal superior endplate concavity at L4. IMPRESSION: IMPRESSION: Osteoporosis by WHO criteria. The [facility] Department of Internal Medicine recommends using National Osteoporosis Foundation (NOF) guidelines in treatment decisions related to osteoporosis. NOF guidelines suggest considering treatment for postmenopausal women and men aged 50 or older presenting with the following: History of hip or vertebral fracture. T-score = -2.5 (DXA) at the femoral neck, total hip, or spine, after appropriate evaluation to exclude secondary causes. Low bone mass (T-score between -1.0 and -2.5 at the femoral neck or spine) AND a 10-year probability of a hip fracture = 3% OR a 10-year probability of a major osteoporosis-related fracture = 20% based on the [place]-adapted WHO algorithm Please note that all treatment decisions require clinical judgment and consideration of individual patient factors, including patient preferences, co-morbidities, previous drug use, risk factors not captured in the FRAX model (e.g., frailty, falls, vitamin D deficiency, increased bone turnover, interval significant decline in bone density) and possible under- or over-estimation of fracture risk by FRAX. Optional alternative screening schedule based on stephenie Muñiz., [facility] September 23, 2011 for patients with osteopenia (based on hip BMD T-score) is as follows: * advanced osteopenia (T scores -2.00 to -2.49), BMD testing every year * moderate osteopenia (T scores -1.50 to -1.99), BMD testing every 5 years mild osteopenia or normal BMD (T scores -1.50 and higher), BMD testing every 15 years Procedure Note Yasmine Francisco MD - 04/23/2024 BONE DENSITY SCAN (DEXA): FINDINGS: Lumbar Spine T-score is -5.0. (SD relative to 20-29 y/o adult) Z-score is -2.5. (SD relative to age matched peers) This is considered osteoporosis by WHO criteria. Left Hip T-score is -4.0. Z-score is -1.9. This is considered osteoporosis by WHO criteria. Comparison exam(s): 12/17/2021. 11.3% loss of lumbar spine bone mineraldensity and 5.7% loss of left hip bone mineral density, both statistically significant at the95% confidence level. Lateral survey view of the thoracolumbar spine shows minimal superiorendplate concavity at L4. IMPRESSION: IMPRESSION: Osteoporosis by WHO criteria. The [facility] Department of Internal Medicine recommendsusing National Osteoporosis Foundation (NOF) guidelines in treatment decisions related toosteoporosis. NOF guidelines suggest considering treatment for postmenopausal women and menaged 50 or older presenting with the following: History of hip or vertebral fracture. T-score = -2.5 (DXA) at the femoral neck, total hip, or spine, afterappropriate evaluation to exclude secondary causes. Low bone mass (T-score between -1.0 and -2.5 at the femoral neck or spine)AND a 10-year probability of a hip fracture = 3% OR a 10-year probability of a majorosteoporosis-related fracture = 20% based on the [place]-adapted WHO algorithm Please note that all treatment decisions require clinical judgment andconsideration of individual patient factors, including patient preferences, co- morbidities,previous drug use, risk factors not captured in the FRAX model (e.g., frailty, falls, vitaminD deficiency, increased bone turnover, interval significant decline in bone density) andpossible under- or over-estimation of fracture risk by FRAX. Optional alternative screening schedule based on stephenie Muñiz., NEJJanuary 2011 for patients with osteopenia (based on hip BMD T-score) is as follows: * advanced osteopenia (T scores -2.00 to -2.49), BMD testing every year * moderate osteopenia (T scores -1.50 to -1.99), BMD testing every 5years mild osteopenia or normal BMD (T scores -1.50 and higher), BMD testingevery 15 years us Geni ESTEVEZ IMQuentin DXA PROCEDURES Final Resu lt * Hepatitis C Screening (07/26/2013) [facility] Hepatitis C Screening Abstracted us Historical Provider HEALTH MAINTENANCE Final Result from Last 3 Months or Most Recently Relevant to Health Maintenance Insurance MEDICARE [facility] Care Teams Rag Shredder Relationship Specialty Start Date End Date Acacia Arora MD [address] [place] [address] PCP - General Internal Medicine 11/18/20
--- OUTSIDE RECORDS SUMMARY | 2025-05-02 08:36 | XMS_ITS | Encounter Summary ---
Author Organization [facility] Address [address] [facility] [address] [place] [address] Phone Care Team Providers Care Parcel Wrapper Name Role Phone Ismael Gomez MD Primary Care Provider U Acacia Simpson MD Primary Care Provider [phone] Encounter Details Date Type Department Care Team (Latest Contact Info) Description 02/19/2019 Transcribe Orders Virtual Department [address] [place] [address] Dandre Mayer MD [address] [place] [address], [address] [address] [email or web address] Overactive bladder (Primary Dx); Other hydronephrosis Social History Tobacco Use Types Packs/Day Years Used Date Smoking Tobacco: Never Assessed Comments Unknown Sex and Gender Information Value Date Recorded Sex Assigned at Not on file Legal Sex Female 4:12 PM EDT Gender Identity Not on file Sexual Orientation Not on file documented as of this encounter Plan of Treatment Upcoming Encounters Date Type Department Care Team (Late st Contact Info) Description 05/21/2025 10:00 AM EDT Nurse Only [facility] [address] [place] [address] Keenan Manrique DO [address] [place] [address] 12/10/2025 10:10 AM EDT Office Visit [facility] [address] [place] [address] Keenan Manrique DO [address] [place] [address] [email or web address] documented as of this encounter Results * US Kidneys and Bladder (03/06/2019 8:07 AM EDT) Anatomical Region Laterality Modality Abdomen, Kidney Ultrasound 03/06/2019 8:29 AM EDT Impressions 03/06/2019 8:30 AM EDT Normal study of the kidneys. No definite bladder abnormalities. POS [id number] Narrative 03/06/2019 8:30 AM EDT HISTORY: Frequency. COMPARISON: None. FINDINGS: Right Kidney: The kidney is normal in size and echogenicity measuring 10.6 cm in the long axis. No evidence of masses, calculi, pelvocaliectasis or significant cortical thinning. Left Kidney: The kidney is normal in size and echogenicity measuring 10.1 cm in the long axis. No evidence of masses, calculi, pelvocaliectasis or significant cortical thinning. Bladder: The urinary bladder is somewhat under distended prior to voiding with a pre-void bladder volume measuring 249 cc. Bilateral ureteral jets demonstrated. Bladder grossly normal in configuration. Small post port residual of 22 cc. Procedure Note Seamus Chen MD - 03/06/2019 HISTORY: Frequency. COMPARISON: None. FINDINGS: Right Kidney: The kidney is normal in size and echogenicity measuring 10.6cm in the long axis. No evidence of masses, calculi, pelvocaliectasis orsignificant cortical thinning. Left Kidney: The kidney is normal in size and echogenicity measuring 10.1cm in the long axis. No evidence of masses, calculi, pelvocaliectasis orsignificant cortical thinning. Bladder: The urinary bladder is somewhat under distended prior to voidingwith a pre-void bladder volume measuring 249 cc. Bilateral ureteral jetsdemonstrated. Bladder grossly normal in configuration. Small post portresidual of 22 cc. IMPRESSION: Normal study of the kidneys. No definite bladder abnormalities. POS [id number] us Dandre Mayer MD IMG RENAL Final Result documented in this encounter Visit Diagnoses Diagnosis Overactive bladder- Primary Hypertonicity of bladder Other hydronephrosis Overactive bladder Hypertonicity of bladder Other hydronephrosis documented in this encounter Additional Health Concerns Infection Onset Date Last Indicated Resolved Time CoV-Risk Comment:Per Ambulatory Triage Form 02/24/2022 02/24/202203/07 1:22 AM EDT documented as of this encounter Care Teams Parcel Wrapper Relationship Specialty Start Date End Date Ismael Gomez MD PCP - General Internal Medicine 02/20/19 01/19/21 Acacia Arora MD [address] [place] [id number] PCP - General Internal Medicine 01/20/21 documented as of this encounter Additional Source Comments The information contained in this document represents components of the legal health record. It is not the complete legal health record.[facility]
--- OUTSIDE RECORDS SUMMARY | 2025-05-02 08:36 | XMS_ITS ---
Author Name [facility] Organization Unknown Care Team Organization Name Specialty Phone Email Start Date End Da te [facility] AC 04/24/2025 [facility] Mariam Buenrostro Primary Care 08/17/2023 04/23/20 [facility] Judie Watkins Primary Care 07/13/2022 04/23/2024
--- OUTSIDE RECORDS SUMMARY | 2025-05-02 08:36 | XMS_ITS | Encounter Summary ---
Author Organization [facility] Address [address] [facility] [address] [place] [id number] Phone Care Team Providers Care Cloth Baler Name Role Phone Acacia Arora MD Primary Care Provider [phone] Encounter Details Date Type Department Care Team (Late st Contact Info) Description 06/15/2024 Procedure Pass OR Admitting Dept - Virtual Department [address] [place] [address] Social History Tobacco Use Types Packs/Day Years Used Date Smoking Tobacco: Former Cigarettes Q uit: 1966 Smokeless Tobacco: Never Alcohol Use Standard Drinks/Week Comments Never 0 [...] 06/15/2024 Are you denied basic needs s uch [...] AM EDT Nurse Only [facility] [address] [place] [address] Keenan Manrique [address] [address] 12/10/2025 10:10 AM EDT Office Visit [facility] [address] [place] [address] Keenan Manrique [address] [address] documented as of this encounter Visit Diagnoses Not on filedocumented in this encounter Care Teams Cloth Baler Relationship Specialty Start Date End Date Acacia Arora MD [address] [place] [id number] PCP - General Internal Medicine 01/20/21 documented as of this encounter Additional Source Comments The information contained in this document represents components of the legal health record. It is not the complete legal health record.[facility]
== END 2025-05-02 08:12 | disposition home or self-care (01) ==
LOC: HO.NEURO 08:11
PROVIDERS: PCP Internal Medicine; Visit Provider Psychiatry & Neurology Neurology
DX: G24.3 Spasmodic torticollis (principal)
CPT/HCPCS: 64616; 95874

== ENCOUNTER → 2025-05-02 08:30 | Outpatient (BNV) | payer MEDICARE, OTHER, SELFPAY | PROVIDERS: PCP Internal Medicine; Visit Provider Psychiatry & Neurology Neurology | DX: G24.3 Spasmodic torticollis (principal) | CPT/HCPCS: 64616; 95874 ==